=== PATIENT | female | born 1960 | race Caucasian/White ===

== ENCOUNTER 2018-09-10 05:39 | Day surgery (SDC) | payer BC, MEDICAID ==
[2018-09-10] MEDS ORDERED: Dextrose 5%-Lactated Ringers 1,000 ML IV SCH (06:00)
[2018-09-10] MEDS ORDERED: Propofol 200 MG/20 ML SDV ONE ×2 (06:50→07:53)
[2018-09-10] MEDS ORDERED: fentaNYL 100 MCG/2 ML SDV ONE (06:50)
[2018-09-10] MEDS ORDERED: Meropenem 500 MG in Sodium Chloride 0.9% 50 ML IV ONE (07:30)
--- NOTE | 2018-09-10 13:38 | OR ---
DATE OF PROCEDURE: 09/10/2018 SURGEON: Dinh Rivera MD PREOPERATIVE DIAGNOSES: 1. Longstanding history of gastroesophageal reflux disease. 2. Indication for screening colonoscopy. POSTOPERATIVE DIAGNOSES: 1. Small hiatal hernia with moderately active gastroesophageal reflux disease. 2. Mild antral gastritis with 2 tiny erosions in the immediate prepyloric area. 3. Single 2 mm rectal polyp. OPERATIVE PROCEDURES: 1. Esophagogastroduodenoscopy with: a. Biopsies of esophagogastric junction for histologic evaluation. b. Biopsies of antrum for CLOtest. 2. Flexible colonoscopy with polypectomy by snare technique. ANESTHESIA: IV sedation. INDICATIONS FOR PROCEDURE: This is a 57-year-old with a longstanding history of gastroesophageal reflux disease. Several years ago, she apparently had an upper endoscopy, but has not had any in recent years. She is presently on Zantac 150 mg b.i.d. and, with this, has fairly good symptom control. Plan is to proceed with an upper GI endoscopy for evaluation of the reflux disease, to rule out entities such as Reinoso's esophagus and such. Otherwise, the patient meets indications for screening colonoscopy, and that will be performed with biopsies and/or polypectomy as indicated. Potential risks including bleeding and perforation were discussed, and the patient wishes to proceed. DETAILS OF PROCEDURE: The patient was taken to the operating room and placed in a left lateral decubitus position. IV sedation was administered, after which the upper GI endoscope was passed orally through the length of the esophagus into the stomach with retroflexion view of the fundus, thereafter through the pyloric channel and into the proximal duodenum. Findings included normal hypopharynx, larynx, upper esophageal sphincter, and esophageal body. At the EG junction, roughly a 2 cm hiatal hernia was present. The mucosa at the esophagogastric junction was quite friable and edematous, consistent with some ongoing reflux disease. There were 2 tongues of columnar type mucosa extending up above the gastric folds consistent with some possible Reinoso's esophagus. There was no plaquing or stricturing suggestive of malignancy, however. Within the stomach, there was some mild antral gastritis. There were 2 tiny erosions present in the immediate prepyloric area that had some old blood on their surface, but not actively bleeding. Pyloric sphincter and duodenum to the junction of the third and fourth portions were unremarkable. At this point, biopsies were obtained from the antrum and sent for CLOtest for H. pylori. Multiple biopsies were then obtained of the esophagogastric junction and sent for histologic evaluation. No bleeding from the biopsy site was seen and the procedure was then concluded. Attention was then taken to the colonoscopy. Initial digital rectal exam was performed and was unremarkable. Colonoscope was then passed to the level of the cecum. The prep was fairly good with there only being a small amount of liquid stool present. There were no diverticula and no areas of colitis. The patient did have one single very tiny polyp perhaps in the range of 2 mm at around 10 cm from the dentate line, i.e. in the mid rectum and this was excised by means of snare and sent for histologic evaluation. Good hemostasis was noted at the polypectomy site, and the scope was then withdrawn and the procedure was then concluded. At this point, I think we will have the patient stay on her present Zantac dose. The upper endoscopic findings were not overly striking and rather than put her on a proton pump inhibitor with a somewhat less adequate side effect profile long-term, we will probably just stay with the Zantac, as long as symptom control remains relatively good. Otherwise, with regard to the colon polyp. If this is a hyperplastic polyp, the patient's next colonoscopy should be in 10 years. If it is an adenomatous polyp, the next colonoscopy should be in 2 to 3 years. Dinh Rivera MD /[id number]
== END 2018-09-10 09:33 | disposition home or self-care (01) ==
LOC: JP.SDS 05:39
PROVIDERS: ATTEND Surgery
DX: Z12.11 Encounter for screening for malignant neoplasm of colon (principal); K62.1 Rectal polyp; K21.0 Gastro-esophageal reflux disease with esophagitis; K44.9 Diaphragmatic hernia without obstruction or gangrene; K29.70 Gastritis, unspecified, without bleeding; K25.9 Gastric ulcer, unspecified as acute or chronic, without hemorrhage or perforation; I10 Essential (primary) hypertension; Z95.0 Presence of cardiac pacemaker; Z88.8 Allergy status to other drugs, medicaments and biological substances; Z91.040 Latex allergy status; Z86.73 Personal history of transient ischemic attack (TIA), and cerebral infarction without residual deficits
CPT/HCPCS: 87081; J2185; J2704; J3010; J7042; J7050

== ENCOUNTER 2022-06-29 08:42 | Day surgery (SDC) | payer MEDICARE ==
[2022-06-29] MEDS ORDERED: Sodium Chloride 0.9% 10 ML Syringe FLUSH PRN (09:30)
== END 2022-06-29 10:45 | disposition home or self-care (01) ==
LOC: JP.SDS 08:42
PROVIDERS: ATTEND Ophthalmology
DX: H26.9 Unspecified cataract (principal)
CPT/HCPCS: 66984; J3490

== ENCOUNTER 2022-07-13 08:00 | Day surgery (SDC) | payer MEDICARE ==
[2022-07-13] MEDS ORDERED: Midazolam 1 MG/ML 2 ML SDV ONE (08:56)
[2022-07-13] MEDS ORDERED: Sodium Chloride 0.9% 10 ML Syringe FLUSH PRN (09:00)
== END 2022-07-13 10:10 | disposition home or self-care (01) ==
LOC: JP.SDS 08:00
PROVIDERS: ATTEND Ophthalmology
DX: H26.9 Unspecified cataract (principal); H57.03 Miosis; I10 Essential (primary) hypertension; K21.9 Gastro-esophageal reflux disease without esophagitis; Z86.73 Personal history of transient ischemic attack (TIA), and cerebral infarction without residual deficits; Z91.040 Latex allergy status
CPT/HCPCS: 66982; J2250; J3490; V2632

== ENCOUNTER 2023-01-26 06:32 | Emergency (ER) | payer MEDICARE ==
[2023-01-26] MEDS: Sodium Chloride 0.9% 10 ML Syringe FLUSH PRN (09:08)
[2023-01-26] MEDS: Aminophylline 500 MG/20 ML SDV IVPUSH PRN (09:19)
[2023-01-26] MEDS ORDERED: Sodium Chloride 0.9% 1,000 ML IV SCH ×2 (09:45→10:45)
[2023-01-26 10:12] LABS: BASOPHILS ABSOLUTE AUTO 0.06 K/uL (0.00-0.10); BASOPHILS PERCENT AUTO 0.7 % (0.1-1.3); EOSINOPHILS ABSOLUTE AUTO 0.13 K/uL (0.00-0.40); EOSINOPHILS PERCENT AUTO 1.6 % (0.0-5.4); HEMATOCRIT 33.2 % (34.3-46.0); HEMOGLOBIN 11.1 g/dL (11.2-15.5); IMMATURE GRAN PERCENT AUTO 0.2 % (0.0-0.7); LYMPHOCYTES ABSOLUTE AUTO 1.87 K/uL (0.8-3.3); LYMPHOCYTES PERCENT AUTO 23.3 % (11.4-47.7); MEAN CORPUSCULAR HEMOGLOBIN 31.7 pg (31.6-35.5); MEAN CORPUSCULAR HGB CONC 33.4 g/dL (31.6-35.5); MEAN CORPUSCULAR VOLUME 94.9 fL (81.4-99.0); MONOCYTES ABSOLUTE AUTO 0.48 K/uL (0.20-0.90); NEUTROPHILS ABSOLUTE AUTO 5.48 K/uL (1.0-7.6); NEUTROPHILS PERCENT AUTO 68.2 % (40.0-78.1); PLATELET COUNT,PLT 291 K/uL (130-375)
[2023-01-26 10:13] LABS: A/G RATIO 0.9 (1.2-2.2); ALANINE AMINOTRANSFERASE,ALT 14 U/L (12-78); ALBUMIN 3.7 g/dL (3.4-5.0); ALKALINE PHOSPHATASE 109 U/L (46-116); ANION GAP 14.6 mmol/L (5.0-14.0); ASPARTATE AMNIOTRANSFERASE,AST 22 U/L (15-37); BILIRUBIN TOTAL 0.8 mg/dL (0.2-1.0); BLOOD UREA NITROGEN,BUN 33 mg/dL (7-18); CALCIUM 8.7 mg/dL (8.5-10.1); CARBON DIOXIDE,CO2 27 mmol/L (21-32); CHLORIDE,CL 99 mmol/L (100-108); CREATININE 1.1 mg/dL (0.6-1.0); ESTIMATED GFR 56 mL/min (>60); GLUCOSE RANDOM 99 mg/dL (74-106); IMMATURE GRAN ABSOLUTE AUTO 0.02 K/uL (0.00-0.23); POTASSIUM,K 3.6 mmol/L (3.6-5.2); PROTEIN TOTAL,TP 7.7 g/dL (6.4-8.2); SODIUM,NA 137 mmol/L (140-148); TROPONIN I HIGH SENSITIVITY 5.3 pg/mL (<=60.3)
[2023-01-26] MEDS ORDERED: Sodium Chloride 0.9% 75 ML IV ONE (10:13)
[2023-01-26] MEDS ORDERED: Sodium Chloride 0.9% 10 ML Syringe FLUSH PRN (10:13)
[2023-01-26] MEDS ORDERED: Iopamidol 612 MG/ML 100 ML Bottle IV SCH (10:30)
[2023-01-26 11:32] LABS: APPEARANCE,URINE CLEAR (CLEAR); BILIRUBIN,URINE NEGATIVE (NEGATIVE); COLOR,URINE YELLOW (YELLOW); GLUCOSE,URINE NEGATIVE (NEGATIVE); KETONES,URINE NEGATIVE (NEGATIVE); LEUKOCYTE ESTERASE,URINE NEGATIVE (NEGATIVE); NITRITE,URINE NEGATIVE (NEGATIVE); OCCULT BLOOD,URINE NEGATIVE (NEGATIVE); PROTEIN,URINE NEGATIVE (NEGATIVE); UROBILINOGEN,URINE 0.2 EU/dL (0.2-1.0)
[2023-01-26 11:48] LABS: AMORPHOUS SEDIMENT,URINE NOT SEEN; BACTERIA,URINE MODERATE; EPITHELIAL CELLS,URINE MODERATE; MUCUS,URINE NOT SEEN; RBC,URINE NOT SEEN (0-5); WBC,URINE 0-5 (0-5)
[2023-01-26] MEDS: Sodium Chloride 0.9% 100 ML IV SCH (13:30)
[2023-01-26] MEDS: Sodium Chloride 0.9% 10 ML Syringe FLUSH ONE (13:52)
[2023-01-26] MEDS: Iopamidol 755 Mg/ML 100 ML Bottle IV SCH (13:53)
== END 2023-01-26 14:43 | disposition home or self-care (01) ==
LOC: JP.ED 06:32 → JP.EDOUT 06:32 → JP.ACU 06:32 → EDSTATUS 07:00 → JP.ED 14:43
DX: R40.4 Transient alteration of awareness (principal); T48.6X5A Adverse effect of antiasthmatics, initial encounter; I10 Essential (primary) hypertension; E78.00 Pure hypercholesterolemia, unspecified; K21.9 Gastro-esophageal reflux disease without esophagitis; M19.90 Unspecified osteoarthritis, unspecified site; E66.9 Obesity, unspecified; Z68.32 Body mass index [BMI] 32.0-32.9, adult; Z79.899 Other long term (current) drug therapy; Z88.8 Allergy status to other drugs, medicaments and biological substances; Z91.040 Latex allergy status; Z79.82 Long term (current) use of aspirin; Z79.02 Long term (current) use of antithrombotics/antiplatelets
CPT/HCPCS: 36415; 70450; 70450-26; 70496; 70496-26; 70498; 70498-26; 78452; 78452-26; 80053; 81001; 82947; 84484; 85025; 93005; 93016; 93017; 93018; 96374; 96375; 99291; 99291-25; A9500; J0280; J2785; J3490; Q9967